=== PATIENT | female | born 1990 ===

== ENCOUNTER 2021-06-18 02:39 | Outpatient (CLI) | payer SELFPAY ==
[2021-06-18 10:00] VITALS: BP 119/77; PULSE 77; PULSE 87; RESP 22; TEMP 36.9; O2SAT 97
[2021-06-18] MEDS: Normal Saline 250 ML 125 ML IV (10:15)
--- NOTE | 2021-06-18 11:10 | NUR.NOTE ---
Addendum entered by Armani Hall 06/18/21 11:27: Patient also states her onset of symptoms was TuesdayJune 13 Original Note: Registered Phlebotomist Part Time Note: I was unable to figure out how to do a medication reconciliation but the patient states she is on the following medications: Omeprazole Albuterol Symbicort Spiriva Fluoxetene Methylprednisolone Singuliar Claritan Wellbutrin
[2021-06-18 12:05] VITALS: BP 112/71; PULSE 80; RESP 16; TEMP 36.6; O2SAT 98
== END 2021-06-18 02:40 | disposition home or self-care (01) ==
LOC: INF 02:41
PROVIDERS: Visit Provider Family Medicine
DX: U07.1 COVID-19 (principal)
CPT/HCPCS: 96365; Q0047